=== PATIENT | female | born 1990 | race Caucasian/White ===

== ENCOUNTER 2016-10-03 08:30 | Emergency (ER) | payer SELFPAY ==
[2016-10-03 08:40] VITALS: BP 120/78; PULSE 92; TEMP 98.1; BMI 25.2
[2016-10-03 09:01] LABS: URINE APPEARANCE CLEAR; URINE BILIRUBIN NEGATIVE (NEGATIVE); URINE COLOR STRAW; URINE GLUCOSE (UA) NEGATIVE (NEGATIVE); URINE KETONE NEGATIVE (NEGATIVE); URINE LEUK ESTERASE NEGATIVE (NEGATIVE); URINE NITRITE NEGATIVE (NEGATIVE); URINE PROTEIN NEGATIVE (NEGATIVE); URINE UROBILINOGEN NEGATIVE E.U./dl (0.2-1.0)
[2016-10-03 09:03] LABS: URINE BLOOD 1+ (NEGATIVE)
[2016-10-03 09:05] LABS: URINE BACTERIA RARE /hpf (NONE SEEN); URINE MUCUS RARE; URINE RBC 8 /hpf (0-3); URINE WBC 3 /hpf (3-5)
[2016-10-03] MEDS ORDERED: KETOROLAC TROMETHAMINE 60 MG/2 ML VIAL ONE (09:45)
[2016-10-03] MEDS ORDERED: PHENAZOPYRIDINE HCL 100 MG TABLET (FP) PO ONE (09:51)
[2016-10-03] MEDS ORDERED: KETOROLAC TROMETHAMINE 60 MG/2 ML VIAL IM ONE (09:51)
--- NOTE | 2016-10-03 09:55 | PDOC ---
History of Present Illness - General Chief Complaint: Urinary Problem Stated Complaint: BACK PAIN Time Seen by Provider: 10/03/16 08:44 History Source: Patient Exam Limitations: No Limitations - History of Present Illness Travel History: No Initial Comments: 10/03/16 09:50 Patient reports 3 weeks ago had onset of symptoms of urinary tract infection, had a bottle of Augmentin in her cupboard and started using that thinking it would cure urinary tract infection. Patient states symptoms have persisted, has had chills and fevers throughout, and now has significant right back pain and significant dysuria with frequency and burning. Denies back problems, no history of injury, exercise change 10/03/16 09:55 Timing/Duration: reports: getting worse, changing over time Quality: reports: aching (right flank), sharpness, throbbing Pain Radiation: reports: flank Activities at Onset: reports: none Aggravating Factors: improves with: None Alleviating Factors: improves with: None Past History - Travel Traveled outside of the country in the last 30 days: No Close contact w/someone who was outside of country & ill: No - Past Medical History Allergies/Adverse Reactions: Allergies Allergy/AdvReac Type Severity Reaction Status Date / Time No Known Drug Allergies Allergy Verified 10/03/16 08:40 mint Allergy Severe Rash Uncoded 10/03/16 08:40 Home Medications: Ambulatory Orders Nitrofurantoin Macrocrystal [Macrodantin -] 100 mg PO BID #14 capsule 10/03/16 Phenazopyridine HCl [Pyridium -] 200 mg PO PC #12 tablet 10/03/16 Anemia: Yes Asthma: No Cancer: No Cardiac Disorders: No Diabetes: No HTN: No Seizures: No Thyroid Disease: No - Psycho/Social/Smoking Cessation Hx Anxiety: No Suicidal Ideation: No Smoking Status: No Smoking History: Never smoked Number of Cigarettes Smoked Daily: 0 Hx Alcohol Use: No Drug/Substance Use Hx: No Substance Use Type: None Hx Substance Use Treatment: No Review of Systems - Review of Systems Able to Perform ROS?: Yes Is the patient limited Maltese proficient: Yes Constitutional: Yes: Symptoms Reported, See HPI, Fever, Loss of Appetite, Malaise. No: Chills HEENTM: No: Symptoms Reported Respiratory: No: Symptoms reported ABD/GI: Yes: Symptoms Reported : Yes: Symptoms Reported, See HPI, Burning, Dysuria, Frequency, Flank Pain ( right side ) Neurological: Yes: Symptoms reported All Other Systems: Reviewed and Negative *Physical Exam - Vital Signs Last Vital Signs Temp Pulse Resp BP Pulse Ox 98.1 F 92 H 18 120/78 100 10/03/16 08:37 10/03/16 08:37 10/03/16 08:37 10/03/16 08:37 10/03/16 08:37 - Physical Exam General Appearance: Yes: Appropriately Dressed, Apparent Distress HEENT: positive: PHYLLIS, Normal ENT Inspection, TMs Normal, Pharynx Normal Neck: positive: Supple. negative: Lymphadenopathy (R), Lymphadenopathy (L) Gastrointestinal/Abdominal: positive: Normal Bowel Sounds, Tender (upper pubic) Musculoskeletal: positive: Normal Inspection, CVA Tenderness (R). 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 NML intact, Fully Oriented, Alert, Normal Response, Motor Strength 5/ ED Treatment Course - ADDITIONAL ORDERS Additional order review: Laboratory Results 10/03/16 08:45 Urine Color Straw Urine Appearance Clear Urine pH 7.0 Ur Specific [place] 1.012 Urine Protein Negative Urine Glucose (UA) Negative Urine Ketones Negative Urine Blood 1+ H Urine Nitrite Negative Urine Bilirubin Negative Urine Urobilinogen Negative Ur Leukocyte Esterase Negative Urine RBC 8 Urine WBC 3 Ur Epithelial Cells Rare Urine Bacteria Rare Urine Mucus Rare Urine HCG, Qual Negative *DC/Admit/Observation/Transfer Diagnosis at time of Disposition: Urinary tract infection Qualifiers: Urinary tract infection type: site unspecified Hematuria presence: with hematuria Qualified Code(s): N39.0 - Urinary tract infection, site not specified ; R31.9 - Hematuria, unspecified - Discharge Dispostion Disposition: HOME Condition at time of disposition: Stable Admit: No - Referrals Referrals: Renita Galdamez MD [Primary Care Provider] - - Patient Instructions Printed Discharge Instructions: DI for Urinary Tract Infection (UTI) Additional Instructions: Rest, drink lots of fluids: Teas, water, soups Avoid contact with others until fevers and symptoms resolved Lots of handwashing and good hygiene Continue [id number] medications for symptomatic relief Tylenol or Motrin for fever and pain Continue all of antibiotics until completed Followup with private physician in one week for repeat urinalysis/reevaluation Return to emergency department for worsened symptoms, fevers, dehydration - Post Discharge Activity Work/School Note: Back to Work
[2016-10-03] MEDS ORDERED: NITROFURANTOIN MACROCRYSTAL 50 MG CAPSULE (FP) ONE (09:57)
[2016-10-03] MEDS ORDERED: PHENAZOPYRIDINE HCL 100 MG TABLET (FP) ONE (09:57)
[2016-10-03] MEDS ORDERED: NITROFURANTOIN MACROCRYSTAL 50 MG CAPSULE (FP) PO SCH (10:00)
== END 2016-10-03 11:01 | disposition home or self-care (01) ==
LOC: JERFT 08:30
PROC: 3E0233Z Introduction of Anti-inflammatory into Muscle, Percutaneous Approach (ICD-10-PCS; principal; 2016-10-03)
DX: N39.0 Urinary tract infection, site not specified (principal); R31.9 Hematuria, unspecified
CPT/HCPCS: 81003; 81015; 84703; 87086; 99281-25

== ENCOUNTER 2021-09-13 17:37 | Emergency (ER) | payer BC, OTHER ==
[2021-09-13 18:00] VITALS: BP 138/85; PULSE 85; TEMP 98.2; BMI 29.2
[2021-09-13 21:09] LABS: EOS % 2.7 % (0-4.5); HEMATOCRIT 26.2 % (32.4-45.2); LYMPH % 28.1 % (8-40); MCH 21.1 pg (25.7-33.7); MCHC 30.5 g/dl (32.0-36.0); MEAN CELL VOLUME 69.1 fl (80-96); MONO % 5.1 % (3.8-10.2); NEUT % 62.1 % (42.8-82.8); PLATELET COUNT 320 10^3/uL (134-434); RDW 19.3 % (11.6-15.6); WHITE BLOOD COUNT 8.1 K/mm3 (4.0-10.0)
[2021-09-13 21:19] LABS: ALBUMIN 3.6 g/dl (3.4-5.0); BLOOD UREA NITROGEN 8.4 mg/dL (7-18); CALCIUM 8.4 mg/dL (8.5-10.1)
[2021-09-13 21:22] LABS: CREATININE 0.8 mg/dL (0.55-1.3)
[2021-09-13 21:24] LABS: BILIRUBIN,TOTAL 0.2 mg/dL (0.2-1); TOT PROT 7.5 g/dl (6.4-8.2)
[2021-09-13 22:09] LABS: ANISOCYTOSIS 2+; MACROCYTOSIS 1+; OVALOCYTE 1+
== END 2021-09-13 22:13 | disposition home or self-care (01) ==
LOC: JER 17:37
DX: D50.9 Iron deficiency anemia, unspecified (principal)
CPT/HCPCS: 36415; 80053; 84439; 84443; 84703; 85025; 86850; 86900; 86901; 99283-25

== ENCOUNTER 2022-09-23 12:32 | Emergency (ER) | payer BC ==
[2022-09-23 13:45] VITALS: BP 142/84; PULSE 76; RESP 18; TEMP 98.6; BMI 29.9
[2022-09-23 15:05] LABS: BASO % 0.9 % (0-2.0); EOS % 1.7 % (0-4.5); HEMOGLOBIN 8.2 GM/dL (10.7-15.3); LYMPH % 26.1 % (8-40); MCH 20.4 pg (25.7-33.7); MCHC 30.5 g/dl (32.0-36.0); MEAN CELL VOLUME 66.8 fl (80-96); MEAN PLT VOLUME 7.3 fl (7.5-11.1); MONO % 6.3 % (3.8-10.2); PLATELET COUNT 380 10^3/uL (134-434); RBC 4.04 M/mm3 (3.60-5.2); RDW 20.1 % (11.6-15.6); WHITE BLOOD COUNT 8.7 K/mm3 (4.0-10.0)
[2022-09-23 15:11] LABS: EPI CELLS 9 /uL (0-25.1); HYALINE CASTS 0 /uL (0-3.1); URINE APPEARANCE CLEAR; URINE BACTERIA 486 /uL (0-1359); URINE BILIRUBIN NEGATIVE (NEGATIVE); URINE COLOR ORANGE; URINE GLUCOSE (UA) NEGATIVE (NEGATIVE); URINE KETONE NEGATIVE (NEGATIVE); URINE LEUK ESTERASE TRACE (NEGATIVE); URINE NITRITE NEGATIVE (NEGATIVE); URINE PROTEIN NEGATIVE (NEGATIVE); URINE RBC 1592 /uL (0-23.9); URINE UROBILINOGEN 0.2 mg/dL (0.2-1.0); URINE WBC 27 /uL (0-25.8)
[2022-09-23 15:26] LABS: BLOOD UREA NITROGEN 7.6 mg/dL (7-18); CALCIUM 8.6 mg/dL (8.5-10.1)
[2022-09-23 15:27] LABS: ALBUMIN 3.6 g/dl (3.4-5.0); ANISOCYTOSIS 3+; MACROCYTOSIS 1+
[2022-09-23 15:30] LABS: CREATININE 0.7 mg/dL (0.55-1.3)
[2022-09-23 15:31] LABS: BILIRUBIN,TOTAL 0.2 mg/dL (0.2-1); TOT PROT 7.5 g/dl (6.4-8.2)
== END 2022-09-23 18:00 | disposition home or self-care (01) ==
LOC: JER 12:32
DX: N93.9 Abnormal uterine and vaginal bleeding, unspecified (principal)
CPT/HCPCS: 36415; 76801-TC; 80053; 81003; 84702; 85025; 86850; 86900; 86901; 99284-25

== ENCOUNTER 2023-11-26 19:18 | Emergency (ER) | payer BC ==
[2023-11-26 19:38] VITALS: BP 130/87; PULSE 80; RESP 16; TEMP 99; BMI 25.8
[2023-11-26] MEDS ORDERED: METHOCARBAMOL 500 MG TABLET ONE (19:48)
[2023-11-26] MEDS ORDERED: ACETAMINOPHEN 500 MG TABLET (FP) ONE (19:48)
[2023-11-26] MEDS ORDERED: LIDOCAINE 5% TOPICAL PATCH ONE ×2 (19:49→20:55)
[2023-11-26] MEDS: LIDOCAINE 5% TOPICAL PATCH TP ONE ×2 (19:54→21:26)
[2023-11-26] MEDS: METHOCARBAMOL 500 MG TABLET PO ONE (19:55)
[2023-11-26] MEDS: ACETAMINOPHEN 500 MG TABLET (FP) PO ONE (19:55)
[2023-11-26] MEDS: LIDOCAINE PATCH REMOVAL MC SCH (21:10)
[2023-11-26] MEDS ORDERED: LIDOCAINE PATCH REMOVAL MC SCH (22:00)
== END 2023-11-26 21:27 | disposition home or self-care (01) ==
LOC: FER 19:18
DX: R10.32 Left lower quadrant pain (principal); M62.831 Muscle spasm of calf
CPT/HCPCS: 81025; 99283-25

== ENCOUNTER 2023-12-22 21:41 | Emergency (ER) | payer BC ==
[2023-12-22 21:58] VITALS: BP 165/90; PULSE 96; RESP 16; TEMP 97.9; BMI 24.2
[2023-12-22 22:35] LABS: HEMATOCRIT 33.5 % (32.4-45.2); MCH 30.3 pg (25.7-33.7); MCHC 32.7 g/dl (32.0-36.0); MEAN CELL VOLUME 92.5 fl (80-96); MEAN PLT VOLUME 8.5 fl (7.5-11.1); PLATELET COUNT 241.7 10^3/uL (134-434); RBC 3.62 10^6/uL (3.60-5.2); RDW 13.9 % (11.6-15.6); WHITE BLOOD COUNT 7.6 10^3/uL (4.0-10.8)
[2023-12-22 22:39] LABS: PLATELET ESTIMATE ADEQUATE
== END 2023-12-23 00:20 | disposition home or self-care (01) ==
LOC: FER 21:41
DX: O20.9 Hemorrhage in early pregnancy, unspecified (principal); Z3A.00 Weeks of gestation of pregnancy not specified
CPT/HCPCS: 36415; 81025; 84703; 85027; 99283-25